=== PATIENT | female | born 1990 | race Hispanic/Latino ===

== ENCOUNTER 2022-10-09 19:26 | Emergency (ER) | payer OTHER, SELFPAY ==
--- NOTE | 2022-10-09 19:39 | ED.GENADULT ---
HPI - General Adult General Chief complaint: Dental/Oral Stated complaint: sores in mouth Time Seen by Provider: 10/09/22 19:40 History of Present Illness HPI narrative: 31-year-old female presented for complaint of ?sores in my mouth? over the last 2-3 days. She states the sores are painful, mostly on the tongue and roof of mouth. Pt also has pain with swallowing. She denies difficulty maintaining secretions. She denies or any rashes, nausea, vomiting, fevers or chills. Her daughter has similar symptoms. Son attends daycare, denies symptoms. She is not taking anything for symptoms. Related Data Allergies Allergy/AdvReac Type Severity Reaction Status Date / Time No Known Allergies Allergy Verified 10/09/22 19:51 Review of Systems Review of Systems: CONSTITUTIONAL: Denies body aches, fever, chills, or sweats. EYES: Denies visual changes, redness, or discharge. ENT: Per HPI Denies rhinorrhea, congestion, or otalgia. CARDIOVASCULAR: Denies chest pain, palpitations, or edema. RESPIRATORY: Denies dyspnea. GASTROINTESTINAL: Denies abdominal pain, nausea, vomiting, or diarrhea. SKIN: Denies rash, itching, or wounds. MUSCULOSKELETAL: Denies back pain, joint pain, or myalgia. NEUROLOGIC: Denies headache PMFSH Past Medical History Medical History (Updated 10/09/22 @ 20:00 by Riana Vieira, MANSI) No pertinent past medical history Exam Narrative: GENERAL: well-appearing, no acute distress. EYES: conjunctivae clear ENT: Mucous membranes moist. TMs pearly carr with normal light reflex bilaterally; no tragal tenderness. Oropharynx erythematous with scattered lesions to tongue, hard palate with erythematous macular lesions. Tonsils enlarged and without exudate. No drooling, no hoarseness, no trismus, uvula midline. No tripod positioning, hot potato voice, or soft palate swelling. NECK: Supple. No lymphadenopathy CHEST: Clear to auscultation, breath sounds equal. HEART: Regular rate and rhythm. No murmur heard. SKIN: Warm, dry, no rash. NEURO: Alert and oriented x3. Course Course Emergency Course: Patient is aware of diagnosis, understands and agrees to treatment plan. Anticipatory guidance given. Patient agrees to follow-up as directed and is aware of reasons to seek care at the emergency department. Portions of this record may have been created with voice recognition software Level of Care: Express Care Visit Vital Signs Vital signs: Vital Signs Temperature 98.3 F 10/09/22 19:40 Pulse Rate 92 10/09/22 19:40 Respiratory Rate 12 10/09/22 19:40 Blood Pressure 124/73 10/09/22 19:40 Pulse Oximetry 98 10/09/22 19:40 Oxygen Delivery Room Air 10/09/22 19:40 Temperature 98.3 F 10/09/22 19:40 Pulse Rate 92 10/09/22 19:40 Respiratory Rate 12 10/09/22 19:40 Blood Pressure 124/73 10/09/22 19:40 Pulse Oximetry 98 10/09/22 19:40 Oxygen Delivery Room Air 10/09/22 19:40 Medical Decision Making MDM Narrative Medical decision making narrative: Negative strep result reviewed with patient. discussed physical exam findings and possible etiologies. Advised supportive measures and signs/symptoms to go to the ER. Pt is appropriate for outpt treatment and f/u. Differential Diagnosis Differential Diagnosis: Influenza, covid, sinusitis, OM, strep pharyngitis, URI, HSM, gingivostomatitis Vital Signs Vital Signs: Vital Signs Temperature 98.3 F 10/09/22 19:40 Pulse Rate 92 10/09/22 19:40 Respiratory Rate 12 10/09/22 19:40 Blood Pressure 124/73 10/09/22 19:40 Pulse Oximetry 98 10/09/22 19:40 Oxygen Delivery Room Air 10/09/22 19:40 Temperature 98.3 F 10/09/22 19:40 Pulse Rate 92 10/09/22 19:40 Respiratory Rate 12 10/09/22 19:40 Blood Pressure 124/73 10/09/22 19:40 Pulse Oximetry 98 10/09/22 19:40 Oxygen Delivery Room Air 10/09/22 19:40 Lab Data Labs: Strep Screen Presumptive Negative
[2022-10-09 19:40] VITALS: BP 124/73; PULSE 92; RESP 12; TEMP 36.8; O2SAT 98
== END 2022-10-09 20:05 | disposition home or self-care (01) ==
PROVIDERS: Emergency Provider Nurse Practitioner Family
DX: K12.0 Recurrent oral aphthae (principal)
CPT/HCPCS: 87081; 87880; 99203; G0463